=== PATIENT | female | born 1995 | race Caucasian/White ===

== ENCOUNTER → 2020-11-02 09:21 | Outpatient (BNVA) | payer SELFPAY | PROVIDERS: Visit Provider Family Medicine | DX: N64.52 Nipple discharge (principal); Z13.6 Encounter for screening for cardiovascular disorders | CPT/HCPCS: 80053; 80061; 84443; 85025 ==

== ENCOUNTER → 2020-11-06 14:41 | Outpatient (BNVA) | payer SELFPAY | PROVIDERS: Visit Provider Family Medicine | DX: N63.20 Unspecified lump in the left breast, unspecified quadrant (principal); N64.52 Nipple discharge | CPT/HCPCS: 87070; 87075; 87077; 87184; 87205 ==

== ENCOUNTER 2020-11-07 10:37 | Outpatient (CLI) | payer SELFPAY ==
--- NOTE | 2020-11-07 11:00 | US_ITS ---
WS: [id number] ULTRASOUND LEFT BREAST HISTORY: bloody discharge from left nipple COMPARISON: None available. TECHNIQUE: 2-D and Doppler. There is very minimal duct dilatation posterior to the LEFT nipple. This is very slightly asymmetric to the RIGHT breast. No solid mass. No intraductal lesion or increased vascularity. US/US breast LT complete [id number] IMPRESSION: BI-RADS: 1-Negative FOLLOW-UP: See Report LEFT breast ultrasound demonstrates no significant abnormality in the LEFT traci st to explain the bloody nipple discharge. If discharge persists additional fol low-up by surgical evaluation may be necessary.
== END 2020-11-07 10:38 | disposition home or self-care (01) ==
PROVIDERS: PCP Family Medicine; Visit Provider Family Medicine
DX: N64.52 Nipple discharge (principal); N64.89 Other specified disorders of breast
CPT/HCPCS: 76641

== ENCOUNTER 2021-01-04 10:24 | Outpatient (CLI) | payer SELFPAY ==
--- NOTE | 2021-01-04 11:00 | MM_ITS ---
WS: [id number] DIAGNOSTIC LEFT DIGITAL MAMMOGRAM WITH CAD HISTORY: N63.20 - Unspecified lump in the left breast, unspecified quadrant, [id number]. History o f bloody discharge LEFT nipple. COMPARISON: 11/07/2020 breast ultrasound. Technique: CC, MLO and ML views. Spot compression LEFT CC and MLO. Breast composition: There are scattered areas of fibroglandular density. Focal asymmetry LEFT breast central to the nipple near the 3:00 axis. This resolves with additional spot compression views. No d ilated ducts are identified. MM/[place] [id number] IMPRESSION: BI-RADS: 0-Incomplete: Need additional imaging evaluation FOLLOW UP: Need Additional Imaging 1. Follow up limited LEFT breast ultrasound is recommended. Patient describes a palpable abnormality in the LEFT breast which she cannot feel today due to st age of menstrual cycle. Recommend follow-up ultrasound limited to the palpable area within the patient is able to feel this nodule. 2. This is discussed with the patient. Patient will return within this palpab le area returns.
== END 2021-01-04 10:25 | disposition home or self-care (01) ==
LOC: RADSHAW 10:27
PROVIDERS: PCP Family Medicine; Visit Provider Surgery
DX: N63.20 Unspecified lump in the left breast, unspecified quadrant (principal)
CPT/HCPCS: 77065

== ENCOUNTER 2021-01-05 07:30 | Outpatient (CLI) | payer SELFPAY ==
--- NOTE | 2021-01-05 07:49 | US_ITS ---
WS: [id number] ULTRASOUND LEFT BREAST, limited HISTORY: N63.20 - Unspecified lump in the left breast, unspecified quadrant COMPARISON: 11/07/2020 and 01/04/2021 TECHNIQUE: 2-D and Doppler. Patient returns for focused ultrasound of the LEFT breast. Patient is now able to feel a palpable nod ule in the LEFT breast. The palpable nodule in the LEFT breast corresponds to a nonvascular hypoechoi c nodule centered within a duct at 3:00, 3 cm from the nipple. This hypoechoic nodule measures 4 x 3 x 3 mm. There are several surrounding dilated ducts within this location. US/US breast LT complete [id number] IMPRESSION: BI-RADS: 4-Suspicious Finding-Biopsy Should Be Considered FOLLOW-UP: Biopsy Recommended Palpable nodule felt by the patient corresponds to a nonvascular hypoechoic mas s centered within the duct. This may be an intraductal papilloma but there is n o increased vascularity. This may be benign duct ectasia and debris within the duct. As there is a history of bloody nipple discharge further evaluation is re commended. Surgical removal or ultrasound-guided biopsy recommended at this bobby juany
== END 2021-01-05 07:31 | disposition home or self-care (01) ==
LOC: RADSHAW 07:31
PROVIDERS: PCP Family Medicine; Visit Provider Surgery
DX: N63.25 Unspecified lump in the left breast, overlapping quadrants (principal)
CPT/HCPCS: 76641

== ENCOUNTER → 2021-01-24 08:15 | Outpatient (BNVA) | payer SELFPAY | PROVIDERS: PCP Family Medicine; Visit Provider Surgery | DX: N63.20 Unspecified lump in the left breast, unspecified quadrant (principal); Z20.822 Contact with and (suspected) exposure to COVID-19 | CPT/HCPCS: 87635 ==

== ENCOUNTER → 2021-01-29 07:03 | Day surgery (SDC) | payer SELFPAY ==
[2021-01-26 10:17] VITALS: BMI 32.4
== END ==
PROVIDERS: PCP Family Medicine; Visit Provider Surgery
DX: Z01.818 Encounter for other preprocedural examination (principal)
CPT/HCPCS: J1100; J2250; J2405; J2704; J3010

== ENCOUNTER → 2021-01-30 13:41 | Outpatient (BNVA) | payer SELFPAY | PROVIDERS: PCP Family Medicine; Visit Provider Surgery | DX: N63.20 Unspecified lump in the left breast, unspecified quadrant (principal) | CPT/HCPCS: 87635 ==

== ENCOUNTER 2021-02-01 09:54 | Day surgery (SDC) | payer SELFPAY ==
[2021-01-31 15:19] VITALS: BMI 32.4
[2021-02-01] VITALS (7 sets, daily range): BP systolic 125–182; BP diastolic 75–97; PULSE 79–104; RESP 15–20; TEMP 36.1–36.7; O2SAT 96–98
--- NOTE | 2021-02-01 10:22 | US_ITS ---
WS: [id number] ULTRASOUND-GUIDED LEFT BREAST NEEDLE LOCALIZATION HISTORY: Left breast lump Procedure, risks and complications were explained to the patient. Consent is obtained. Skin is cleansed with ChloraPrep and anesthetized with 1% buffered lidocaine. Needle and guidewire pl aced to the area of concern with no complications. The needle and wire are placed through the soft ti ssue mass within the dilated duct of the LEFT breast at 3:00. Ultrasound guidance performed during th e needle localization. Guidewire is left within the lesion. Guidewire secured and no complications en countered. Patient is being transported to the OR suite. Specimen radiograph is also reviewed. Area of concern and nodule is present within the specimen. RECOMMENDATIONS: Diagnostic LEFT mammogram follow-up in 6 months. US/[place] [id number] IMPRESSION: 1. Uncomplicated wire localization of the LEFT breast intraductal nodule at 3: 00. 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 No malignancy.
[2021-02-01] MEDS: sodium chloride 0.9% 1,000 ML 30 ML IV (11:00)
--- NOTE | 2021-02-01 11:07 | W.PM.OPSUD ---
Surgery/Procedure H&P Update DATE OF PROCEDURE: February 01, 2021 DATE H&P PERFORMED: 01/09/21 H&P UPDATE INFORMATION: I have reviewed H&P completed within last 30 days, I have examined patient prior to procedure and No changes to prior documentation PREOP DIAGNOSIS: Bleeding from nipple PLANNED PROCEDURE: Operation Date: 02/01/21 12:20 Proposed Procedures p left Breast Biopsy Needle Localization lumpectomy [id number] N63.20(Left) - James Hoffman MD
[2021-02-01 11:36] LABS: OR HCG Qualitative Urine Negative (Negative)
[2021-02-01] MEDS: lidocaine 1% INJ 20 mL IM (12:58)
--- NOTE | 2021-02-01 13:28 | ANES.PREANE2 ---
Pre-Anesthetic Assessment Pre-Anesthetic Assessment: Height/Weight: Height 1.7 m Weight 93.894 kg Temp Pulse Resp BP Pulse Ox 97.0 F L 79 18 144/96 98 02/01/21 10:07 02/01/21 10:07 02/01/21 10:07 02/01/21 10:07 02/01/21 10:07 Preop Diagnosis: Bleeding from nipple Proposed Procedure: Operation Date: 02/01/21 12:20 Proposed Procedures p left Breast Biopsy Needle Localization lumpectomy [id number] N63.20(Left) - James Hoffman MD Was Beta Gennaro taken within 24 hours: N/A Was Clonidine taken within 24 hours: N/A Last intake: Intake Last Liquid Date 01/31/21 Last Liquid Time 23:45 Last Solid Date 01/31/21 Last Solid Time 23:45 Social: Social History: No alcohol and No tobacco Exam: Pre-Anes Outpt Exam: alert, oriented x 3, clear to auscultation bilaterally and regular rate & rhythm Airway: Submandibular: WNL Cervical ROM: WNL MP: 2 Dentition: Full History/ROS: No significant history except as noted Metabolic: Metabolic: Morbid obesity Anesthetic Plan: ASA status: 2 Anesthesia: General Risk of > 500 ml blood loss (7ml/kg in children): No PFSH Anesthesia PFSH: Medical History Asthma IBS (irritable bowel syndrome) Surgical History No pertinent past surgical history Family History Other Asthma IBS (irritable bowel syndrome) Social History Smoking and tobacco status: never smoked Alcohol intake: never Data Anesthesia Other Labs: Laboratory Results - last 48 hr 02/01/21 11:35 Urine HCG, Qual Negative Cardiac Studies: No Data to Display
--- NOTE | 2021-02-01 14:18 | P.OP_ITS ---
Operative Report Date of procedure: February 01, 2021 Pre-op Diagnosis: Bleeding left nipple Post-op Diagnosis: Bleeding left nipple Procedure Done: Wire localization lumpectomy left breast Specimens removed/disposition: Left breast mass 3 o'clock position short stitch superior, long stitch lateral Surgeon: James Hoffman Anesthesia: General Condition: stable Disposition: PACU Procedure: The wire localization of the mammographic abnormality was performed by the radiologist under ultrasound guidance and the patient was transferred to operating room and placed under MAC after IV antibiotic had been administered. The left breast was prepped and draped in a manner . Pressure on the left breast at 3 o'clock position resulted in drainage of blood from one of the duct opening in the left nipple. The offending duct was cannulated using a lacrimal probe which extended up to the wire placed by the radiologist. A curvilinear incision was made over the areolar margin at 3'o clock lateral to the marking over the mammographic abnormality, subcutaneous tissue was divided and skin flaps were raised superiorly and inferiorly. The localization wire was grasped through the incision and using electrocautery the wire along with the breast tissue containing mammographic abnormality was dissected free from the surrounding tissue. Using 2-0 silk suture, short stitch was placed superiorly and a long stitch was placed laterally.The wound was irrigated with saline, hemostasis ensured with electrocautery and subcutaneous tissues approximated in layers using 3-0 running Vicryl suture and skin was closed using running subcut icular 4-0 Monocryl sutures and Dermabond. Fluffs were used for pressure dressing. Patient was transferred to recovery room and stable condition The lumpectomy specimens were sent to mammography to obtain radiological confirmation of complete excision of the mammographic abnormality.
--- NOTE | 2021-02-01 14:30 | US_ITS ---
WS: [id number] ULTRASOUND-GUIDED LEFT BREAST NEEDLE LOCALIZATION HISTORY: Left breast lump Procedure, risks and complications were explained to the patient. Consent is obtained. Skin is cleansed with ChloraPrep and anesthetized with 1% buffered lidocaine. Needle and guidewire pl aced to the area of concern with no complications. The needle and wire are placed through the soft ti ssue mass within the dilated duct of the LEFT breast at 3:00. Ultrasound guidance performed during th e needle localization. Guidewire is left within the lesion. Guidewire secured and no complications en countered. Patient is being transported to the OR suite. Specimen radiograph is also reviewed. Area of concern and nodule is present within the specimen. RECOMMENDATIONS: Diagnostic LEFT mammogram follow-up in 6 months. US/US breast surgical specimen IMPRESSION: 1. Uncomplicated wire localization of the LEFT breast intraductal nodule at 3: 00. 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 No malignancy.
--- NOTE | 2021-02-01 18:09 | ANE.PACU2 ---
Inpatient post-anesthesia follow up: Airway intact: Yes Vital signs: Temperature 97.8 F Pulse Rate 81 Respiratory Rate 18 Blood Pressure 125/82 Pulse Oximetry 97 Oxygen Delivery Me thod Room Air Oxygen Flow Rate 6 Fraction of Inspir ed Oxygen Hydration adequate: Yes Nausea and vomiting: No Pain level: 2 Mental status: Baseline
== END 2021-02-01 15:25 | disposition home or self-care (01) ==
PROVIDERS: PCP Family Medicine; Visit Provider Surgery
PROC: (CPT 19301; principal; 2021-02-01 12:20)
DX: D24.2 Benign neoplasm of left breast (principal); E66.01 Morbid (severe) obesity due to excess calories; Z68.32 Body mass index [BMI] 32.0-32.9, adult
CPT/HCPCS: 19301; 19285; 84703; 88305; 96365; C1889; J0690; J3490; J7030

== ENCOUNTER → 2021-10-31 09:50 | Outpatient (BNVA) | payer OTHER, SELFPAY | PROVIDERS: Visit Provider Family Medicine | DX: R05.9 Cough, unspecified (principal); R06.89 Other abnormalities of breathing | CPT/HCPCS: 87635 ==

== ENCOUNTER → 2021-11-11 19:12 | Outpatient (BNVA) | payer SELFPAY | PROVIDERS: PCP Family Medicine; Visit Provider Family Medicine | DX: N39.0 Urinary tract infection, site not specified (principal); R05.9 Cough, unspecified | CPT/HCPCS: 81000; 87400; 87635 ==

== ENCOUNTER 2021-11-13 11:32 | Outpatient (CLI) | payer SELFPAY ==
[2021-11-13 11:49] VITALS: BP 135/80; PULSE 108; RESP 20; TEMP 36.7; O2SAT 93; BMI 33.3
[2021-11-13 12:50] VITALS: BP 115/74; PULSE 87; RESP 18; TEMP 36.7; O2SAT 97
[2021-11-13] MEDS: ondansetron 4 MG Tablet PO (12:55)
[2021-11-13 13:28] VITALS: BP 118/71; PULSE 75; RESP 17; TEMP 36.9; O2SAT 97
== END 2021-11-13 11:33 | disposition home or self-care (01) ==
LOC: OPS 11:33
PROVIDERS: PCP Family Medicine; Visit Provider Family Medicine
DX: U07.1 COVID-19 (principal)
CPT/HCPCS: 96365; Q0162

== ENCOUNTER → 2023-04-24 07:37 | Outpatient (BNVA) | payer SELFPAY | PROVIDERS: PCP Family Medicine; Visit Provider Nurse Practitioner Family | DX: R39.9 Unspecified symptoms and signs involving the genitourinary system (principal); N20.0 Calculus of kidney | CPT/HCPCS: 81000 ==

== ENCOUNTER 2024-12-16 13:43 | Outpatient (CLI) | payer SELFPAY ==
--- NOTE | 2024-12-16 14:00 | MM_ITS ---
WS: [id number] BILATERAL 3D TOMOSYNTHESIS DIGITAL DIAGNOSTIC MAMMOGRAPHY WITH CAD CLINICAL INFORMATION: NIPPLE DISCHARGE, BLOODY AND CLEAR HISTORY: Bloody and clear LEFT nipple discharge. History of ductal papilloma resection 2020 COMPARISON: 2020 TECHNIQUE: Bilateral CC, MLO, and ML views. FINDINGS: Scattered fibroglandular densities bilaterally. Ductal ectasia subareolar LEFT breast. Ultrasound of this area is pending. Parenchymal scarring anterior LEFT breast from prior surgery. Unremarkable RIGHT breast. ULTRASOUND BREAST LEFT TECHNIQUE: Ultrasound left breast focused area of concern. CLINICAL INFORMATION: NIPPLE DISCHARGE, BLOODY. Previous resection of intraductal papilloma LEFT breast COMPARISON: 2020 FINDINGS: Ultrasound subareolar LEFT breast. No suspicious abnormalities subareolar LEFT breast. Underlying parenchymal scarring from prior surgery. No cystic or solid lesions. No suspicious lesions to target for biopsy. MM/MM diag tomosynthesis [id number] IMPRESSION: DENSITY: There are scattered areas of fibroglandular density. BI-RADS: 2 - Benign. FOLLOW UP: 1 Year Follow-up Recommend return to annual screening mammography.
--- NOTE | 2024-12-16 14:30 | US_ITS ---
WS: [id number] BILATERAL 3D TOMOSYNTHESIS DIGITAL DIAGNOSTIC MAMMOGRAPHY WITH CAD CLINICAL INFORMATION: NIPPLE DISCHARGE, BLOODY AND CLEAR HISTORY: Bloody and clear LEFT nipple discharge. History of ductal papilloma resection 2020 COMPARISON: 2020 TECHNIQUE: Bilateral CC, MLO, and ML views. FINDINGS: Scattered fibroglandular densities bilaterally. Ductal ectasia subareolar LEFT breast. Ultrasound of this area is pending. Parenchymal scarring anterior LEFT breast from prior surgery. Unremarkable RIGHT breast. ULTRASOUND BREAST LEFT TECHNIQUE: Ultrasound left breast focused area of concern. CLINICAL INFORMATION: NIPPLE DISCHARGE, BLOODY. Previous resection of intraductal papilloma LEFT breast COMPARISON: 2020 FINDINGS: Ultrasound subareolar LEFT breast. No suspicious abnormalities subareolar LEFT breast. Underlying parenchymal scarring from prior surgery. No cystic or solid lesions. No suspicious lesions to target for biopsy. US/US breast LT limited* [id number] IMPRESSION: DENSITY: There are scattered areas of fibroglandular density. BI-RADS: 2 - Benign. FOLLOW UP: 1 Year Follow-up Recommend return to annual screening mammography.
== END 2024-12-16 13:44 | disposition home or self-care (01) ==
PROVIDERS: PCP Family Medicine; Visit Provider Family Medicine
DX: N64.52 Nipple discharge (principal); Z98.890 Other specified postprocedural states; R92.323 Mammographic fibroglandular density, bilateral breasts; N60.42 Mammary duct ectasia of left breast
CPT/HCPCS: 76642; 77062; G0279